=== PATIENT | male | born 1995 | race Caucasian/White ===

== ENCOUNTER 2021-05-24 15:33 | Emergency (ER) | payer BC, OTHER ==
[~2021-05-24] VITALS: Ht 175.3 cm; Wt 75.0 kg
[2021-05-24] MEDS ORDERED: normal saline 1000ml 1,000 ML IV ONE (16:40)
[2021-05-24 16:56] LABS: BASOPHILS # (AUTO) 0.1 X10'3 (0-0.2); BASOPHILS % (AUTO) 0.5 % (0-1); EOSINOPHILS # (AUTO) 0.1 X10'3 (0-0.9); EOSINOPHILS % (AUTO) 0.3 % (0-6); HEMATOCRIT 44.6 % (42.0-52.0); HEMOGLOBIN 15.2 g/dl (14.0-17.9); LYMPHOCYTES # (AUTO) 2.2 X10'3 (1.1-4.8); LYMPHOCYTES % (AUTO) 12.3 % (21-51); MEAN CORPUSCULAR HEMOGLOBIN 30.7 PG (27.0-31.0); MEAN CORPUSCULAR HGB CONC 34.1 g/dL (33.0-36.5); MEAN CORPUSCULAR VOLUME 90.2 FL (78-98); MEAN PLATELET VOLUME 7.6 FL (7.4-10.4); MONOCYTES # (AUTO) 1.3 X10'3 (0-0.9); MONOCYTES % (AUTO) 7.1 % (2-12); NEUTROPHILS # (AUTO) 14.6 X10'3 (1.8-7.7); NEUTROPHILS % (AUTO) 79.8 % (42-75); PLATELET COUNT 300 X10'3 (140-440); RED BLOOD COUNT 4.94 X10'6 (4.70-6.10); RED CELL DISTRIBUTION WIDTH 12.9 % (11.5-14.5); WHITE BLOOD COUNT 18.3 X10'3 (4.5-11.0)
[2021-05-24 17:06] LABS: CLARITY,URINE CLOUDY (Clear); COLOR,URINE YELLOW (Yellow); GLUCOSE, URINE NEGATIVE (Neg); KETONES,URINE 40 mg/dl (Neg); LEUKOCYTE ESTERASE ,URINE NEGATIVE (Neg); NITRITES, URINE NEGATIVE (Neg); OCCULT BLOOD,URINE TRACE-LYSED (Neg); PH,URINE 6.5 (4.8-8.0); PROTEIN,URINE NEGATIVE (Neg); UA COLLECTION TYPE CLN CATCH MIDSTREAM; UROBILINOGEN,URINE 0.2 E.U/dL (0.2-1.0)
[2021-05-24 17:12] LABS: AMORPHOUS URATES 3+; BACTERIA,URINE FEW /HPF (Neg); HYALINE CASTS 0-3 /LPF (NEGATIVE); MUCUS STRANDS MODERATE /LPF (Neg); RBC,URINE NONE SEEN /HPF (0-2); SQUAMOUS EPITHELIAL CELL,UR NONE SEEN /LPF (FEW); WBC,URINE 0-4 /HPF (0-4)
[2021-05-24 17:14] LABS: ALANINE AMINOTRANSFERASE 22 U/L (12-78); ALBUMIN 4.4 G/DL (3.4-5.0); ALBUMIN/GLOBULIN RATIO 1.5 (1.1-1.5); ALKALINE PHOSPHATASE 30 IU/L (46-116); ANION GAP 14 (8-16); ASPARTATE AMINO TRANSFERASE 20 U/L (10-37); BILIRUBIN,TOTAL 0.5 MG/DL (0.1-1.0); BLOOD UREA NITROGEN 11 MG/DL (7-18); BUN/CREATININE RATIO 12.8 (5.4-32.0); CALCIUM 9.4 MG/DL (8.5-10.1); CHLORIDE 104 MMOL/L (99-107); CREATININE 0.86 MG/DL (0.60-1.10); GLUCOSE 96 MG/DL (70-104); POTASSIUM 3.6 MMOL/L (3.5-5.1); SODIUM 142 MMOL/L (135-145); TOTAL CARBON DIOXIDE 24.3 MMOL/L (24-32); TOTAL PROTEIN 7.4 G/DL (6.4-8.2); eGFR > 90 ML/MIN
[2021-05-24 17:17] LABS: URINE AMPHETAMINE SCREEN NEGATIVE (Neg); URINE BARBITUATE SCREEN NEGATIVE (Neg); URINE BENZODIAZEPINES SCREEN POSITIVE (Neg); URINE CANNABINOID SCREEN POSITIVE (Neg); URINE COCAINE SCREEN NEGATIVE (Neg); URINE METHADONE SCREEN NEGATIVE (Neg); URINE OPIATE SCREEN NEGATIVE (Neg); URINE PHENCYCLIDINE SCREEN NEGATIVE (Neg)
--- NOTE | 2021-05-24 17:20 | NUR ---
PT REFUSED IV STATES HE WILL DRINK H2O. DR MOORE NOTIFIED OK TO LEAVE IV OUT
[2021-05-24 17:22] LABS: ETHANOL < 0.010 GM/DL (0.0-0.010)
--- NOTE | 2021-05-24 17:51 | NUR ---
patient given a pitcher of water.
[2021-05-24] MEDS ORDERED: MELA10TA PO (18:59)
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
--- NOTE | 2021-05-24 19:29 | NUR ---
MEDICALLY CLEARED PACKET FAXED TO @ [id number].
[2021-05-24] MEDS ORDERED: Melatonin 3mg tablet PO PRN (21:38)
--- NOTE | 2021-05-25 04:03 | NUR ---
Patient awoke after sleeping for most of night, requested warm blankets and urinal. Patient used urinal, warm blankets and ice water were provided. Patient denies any other needs at this time.
--- NOTE | 2021-05-25 07:26 | NUR ---
PACKET FAXED TO [facility]
--- NOTE | 2021-05-25 10:30 | NUR ---
PT ALERT IN BED NO DISTRESS NOTED. REFILLED WATER
--- NOTE | 2021-05-25 11:27 | NUR ---
[facility] AT BEDSIDE
--- NOTE | 2021-05-26 02:21 | NUR ---
Patient requested "eye drops"; MD notified and verbal order received to use normal saline rinse. RN rinsed patient's eyes with saline, patient states relief.
--- NOTE | 2021-05-26 06:40 | NUR ---
REPORT RECEIVED, CARE ASSUMED OF PT SLEEPING IN [place] BED [facility] IN NO NOTED DISTRESS.
--- NOTE | 2021-05-26 08:00 | NUR ---
PT REMAINS ASLEEP, NO S/S OF DISTRESS NOTED
--- NOTE | 2021-05-26 14:55 | NUR ---
[facility] CALLED PT HAS BEEN ACCEPTED TO [facility] IN [place]. PT WILL BE GOING ON 05/27 AFTER THEY HAVE DISCHARGES. NURSE TO NURSE REPORT WAS GIVEN TO MIRZA LOYD. WAS INFORMED THAT PT WILL BE PICKED UP FOR TRANSPORT AT [facility]OX 1300 TOMORROW AFTERNOON
--- NOTE | 2021-05-26 17:58 | NUR ---
PT WAS ASLEEP THE MAJORITY OF THE DAY. PT HAS NOW WOKEN UP AND INFORMED THAT FAMILY CALLED AND INQUIRING OF HIS STATUS. PT HAS GIVEN PERMISSION FOR KATHRINE HERNANDEZ TO RECEIVE STATUS INFORMATION AND HIS CONTACT NUMBER
--- NOTE | 2021-05-26 19:42 | NUR ---
One to one with the patient who was very cooperative with moving to bed 21. He stated that he has been sleeping poorly. His replies were at times difficult to follow and guarded. He has a blank stare and he also stated, "Typically I don't have any emotions" He stated that he has been noticing strange coincidences. He does not know the history of his biological parents. When asked about psychotic symptoms he stated, "I saw the future and then the future played out"
--- NOTE | 2021-05-26 20:54 | NUR ---
The patient appears to be sleeping
[2021-05-26] MEDS ORDERED: PEG 400/HYPROMELLOSE/GLYCERIN 15ml bottle EACHEYE PRN (21:20)
--- NOTE | 2021-05-26 21:25 | NUR ---
THe patient complaining of dry eyes and Dr. Medrano made aware and orders received.
--- NOTE | 2021-05-26 22:37 | NUR ---
The patient appears to be sleeping
--- NOTE | 2021-05-27 00:01 | NUR ---
The patient appears to be sleeping
--- NOTE | 2021-05-27 02:44 | NUR ---
The patient is up to use the bathroom
[2021-05-27 05:50] VITALS: BP 96/65
--- NOTE | 2021-05-27 05:58 | NUR ---
The patient appears to be sleeping. He has periodically been up to use the bathroom.
--- NOTE | 2021-05-27 08:30 | NUR ---
Patient ate breakfast, states he doesnt feel "as confused" today
--- NOTE | 2021-05-27 09:45 | NUR ---
Patient doing stretches in the bed
== END 2021-05-27 13:05 ==
LOC: ER 15:34
DX: R45.851 Suicidal ideations (principal); Z20.822 Contact with and (suspected) exposure to COVID-19; Z87.442 Personal history of urinary calculi; Z91.018 Allergy to other foods; Z79.899 Other long term (current) drug therapy
CPT/HCPCS: 36415; 80053; 80305; 80320; 81001; 84443; 85025; 87635; 99285; C9803

== ENCOUNTER 2022-05-07 23:06 | Emergency (ER) | payer BC ==
[~2022-05-07] VITALS: Ht 175.3 cm; Wt 77.7 kg
[~2022-05-07 23:06] MED LIST: MELA10TA PO
[2022-05-07 23:45] LABS: BASOPHILS # (AUTO) 0.2 X10'3 (0-0.2); BASOPHILS % (AUTO) 0.6 % (0-1); EOSINOPHILS # (AUTO) 0.1 X10'3 (0-0.9); EOSINOPHILS % (AUTO) 0.2 % (0-6); HEMATOCRIT 48.4 % (42.0-52.0); HEMOGLOBIN 16.4 g/dl (14.0-17.9); LYMPHOCYTES # (AUTO) 1.4 X10'3 (1.1-4.8); LYMPHOCYTES % (AUTO) 4.1 % (21-51); MEAN CORPUSCULAR HEMOGLOBIN 30.6 PG (27.0-31.0); MEAN CORPUSCULAR VOLUME 89.9 FL (78-98); MEAN PLATELET VOLUME 7.6 FL (7.4-10.4); MONOCYTES # (AUTO) 1.4 X10'3 (0-0.9); MONOCYTES % (AUTO) 4.3 % (2-12); NEUTROPHILS # (AUTO) 30.2 X10'3 (1.8-7.7); NEUTROPHILS % (AUTO) 90.8 % (42-75); PLATELET COUNT 337 X10'3 (140-440); RED BLOOD COUNT 5.38 X10'6 (4.70-6.10); RED CELL DISTRIBUTION WIDTH 13.3 % (11.5-14.5)
[2022-05-07 23:49] LABS: WHITE BLOOD COUNT 33.3 X10'3 (4.5-11.0)
[2022-05-07 23:57] LABS: ALANINE AMINOTRANSFERASE 19 U/L (12-78); ALBUMIN 4.6 G/DL (3.4-5.0); ALBUMIN/GLOBULIN RATIO 1.3 (1.1-1.5); ALKALINE PHOSPHATASE 41 IU/L (46-116); ANION GAP 13 (8-16); ASPARTATE AMINO TRANSFERASE 15 U/L (10-37); BLOOD UREA NITROGEN 10 MG/DL (7-18); BUN/CREATININE RATIO 8.6 (5.4-32.0); CALCIUM 9.9 MG/DL (8.5-10.1); CHLORIDE 101 MMOL/L (99-107); CREATININE 1.16 MG/DL (0.60-1.10); GLUCOSE 135 MG/DL (70-104); POTASSIUM 4.3 MMOL/L (3.5-5.1); SODIUM 139 MMOL/L (135-145); TOTAL CARBON DIOXIDE 25.2 MMOL/L (24-32); TOTAL PROTEIN 8.2 G/DL (6.4-8.2); eGFR 75 ML/MIN
[2022-05-08 00:06] LABS: ETHANOL < 0.010 GM/DL (0.0-0.010)
[2022-05-08 00:14] LABS: PLATELET ESTIMATE NORMAL; TOTAL CELLS COUNTED 100
[2022-05-08 00:38] LABS: URINE AMPHETAMINE SCREEN POSITIVE (Neg); URINE BARBITUATE SCREEN NEGATIVE (Neg); URINE BENZODIAZEPINES SCREEN NEGATIVE (Neg); URINE CANNABINOID SCREEN POSITIVE (Neg); URINE COCAINE SCREEN NEGATIVE (Neg); URINE METHADONE SCREEN NEGATIVE (Neg); URINE OPIATE SCREEN NEGATIVE (Neg); URINE PHENCYCLIDINE SCREEN NEGATIVE (Neg)
[2022-05-08] MEDS ORDERED: CefTRIAXone 2gm/D5W 50ml BAG 50 ML IV ONE (02:30)
[2022-05-08] MEDS ORDERED: normal saline 1000ml 1,000 ML IV ONE ×2 (02:30)
[2022-05-08 04:44] LABS: EOSINOPHILS % (AUTO) 0.2 % (0-6); LYMPHOCYTES # (AUTO) 1.8 X10'3 (1.1-4.8); LYMPHOCYTES % (AUTO) 6.2 % (21-51)
[2022-05-08 04:45] LABS: BASOPHILS # (AUTO) 0.1 X10'3 (0-0.2); BASOPHILS % (AUTO) 0.3 % (0-1); MEAN CORPUSCULAR HEMOGLOBIN 30.7 PG (27.0-31.0); MEAN CORPUSCULAR HGB CONC 34.2 g/dL (33.0-36.5); MEAN CORPUSCULAR VOLUME 89.8 FL (78-98); MEAN PLATELET VOLUME 7.9 FL (7.4-10.4); MONOCYTES # (AUTO) 1.6 X10'3 (0-0.9); MONOCYTES % (AUTO) 5.6 % (2-12); NEUTROPHILS # (AUTO) 24.9 X10'3 (1.8-7.7); NEUTROPHILS % (AUTO) 87.7 % (42-75); PLATELET COUNT 232 X10'3 (140-440); RED BLOOD COUNT 4.56 X10'6 (4.70-6.10)
[2022-05-08 04:49] LABS: WHITE BLOOD COUNT 28.4 X10'3 (4.5-11.0)
--- NOTE | 2022-05-08 05:06 | NUR ---
PACKET SENT TO [facility]
--- NOTE | 2022-05-08 06:35 | NUR ---
Pt ambulated from ER bed 7 to ER overflow bed 23 with EMT, José Antonio arcos.
--- NOTE | 2022-05-08 06:48 | NUR ---
The patient to bed 23. He was very cooperative with the move. He is fearful that his life is in danger. He has been getting messages from his computer.
--- NOTE | 2022-05-08 06:52 | NUR ---
Patient's , Latoya [phone]
--- NOTE | 2022-05-08 08:30 | NUR ---
The patient is resting on his bed
[2022-05-08] MEDS ORDERED: olanzapine 10mg tablet PO ONE (09:40)
--- NOTE | 2022-05-08 09:49 | NUR ---
The patient is very fearful about his paranoid and delusional thoughts. He wants his called to bring his phone to prove that the "bots" are real. He stated that if he left here he would "jump off something" Dr. Paredes made aware and orders received. [facility] seam steamer made aware and is seeing him at this time.
[2022-05-08] MEDS ORDERED: LORazepam 1 MG tablet PO ONE (10:30)
--- NOTE | 2022-05-08 10:35 | NUR ---
The patient continues to be very fearful. MD made aware and ativan 2mg ordered.
--- NOTE | 2022-05-08 13:36 | NUR ---
The patient is resting on his bed and the is visiting with him
--- NOTE | 2022-05-08 14:16 | NUR ---
T-97.8 and labs redrawn. Report to Randy at [facility]
[2022-05-08 14:29] LABS: BASOPHILS # (AUTO) 0.1 X10'3 (0-0.2); BASOPHILS % (AUTO) 0.5 % (0-1); EOSINOPHILS # (AUTO) 0.6 X10'3 (0-0.9); EOSINOPHILS % (AUTO) 3.5 % (0-6); HEMATOCRIT 43.4 % (42.0-52.0); HEMOGLOBIN 14.7 g/dl (14.0-17.9); LYMPHOCYTES # (AUTO) 4.2 X10'3 (1.1-4.8); LYMPHOCYTES % (AUTO) 24.2 % (21-51); MEAN CORPUSCULAR HEMOGLOBIN 30.7 PG (27.0-31.0); MEAN CORPUSCULAR HGB CONC 33.9 g/dL (33.0-36.5); MEAN CORPUSCULAR VOLUME 90.6 FL (78-98); MONOCYTES # (AUTO) 1.4 X10'3 (0-0.9); MONOCYTES % (AUTO) 8.1 % (2-12); NEUTROPHILS % (AUTO) 63.7 % (42-75); PLATELET COUNT 287 X10'3 (140-440); RED BLOOD COUNT 4.79 X10'6 (4.70-6.10); RED CELL DISTRIBUTION WIDTH 13.3 % (11.5-14.5); WHITE BLOOD COUNT 17.2 X10'3 (4.5-11.0)
--- NOTE | 2022-05-08 15:23 | NUR ---
The patient is resting on his bed
--- NOTE | 2022-05-08 16:18 | NUR ---
The patient appears to be sleeping
--- NOTE | 2022-05-08 17:12 | NUR ---
The patient is sleeping. His is at the bedside
--- NOTE | 2022-05-08 19:30 | NUR ---
Patient is sleeping quietly. His sits at bedside. No distress.
[2022-05-08] MEDS: olanzapine 10mg tablet PO SCH (19:40)
--- NOTE | 2022-05-08 19:50 | NUR ---
Patients is going home. Patient is cooperative with mild anxiety. In direct view from nursing station.
--- NOTE | 2022-05-08 22:18 | NUR ---
Patient is sleeping quietly on his left side.
--- NOTE | 2022-05-09 02:01 | NUR ---
Patient is sleeping on his right side, no distress.
--- NOTE | 2022-05-09 03:21 | NUR ---
Patient sleeping quietly, no distress.
--- NOTE | 2022-05-09 04:36 | NUR ---
Patient awoke, to bathroom and then back to bed.
--- NOTE | 2022-05-09 05:50 | NUR ---
Vital signs taken. The patient is cooperative and returns to sleep.
--- NOTE | 2022-05-09 07:06 | NUR ---
Patient is sleeping in a supine position.
[2022-05-09] MEDS: olanzapine 10mg tablet PO SCH ×2 (07:25→23:06)
--- NOTE | 2022-05-09 08:59 | NUR ---
Patient is sleeping quietly.
--- NOTE | 2022-05-09 09:51 | NUR ---
This patient talks in his sleep. He is supine, no distress is evident.
--- NOTE | 2022-05-09 10:34 | NUR ---
Patients is here. She is visiting patient. She sits at bedside in a chair. Patients brought in patients cell phone for his future use. It is turned off and will be logged in to patients belongings by the [employer].
--- NOTE | 2022-05-09 10:38 | NUR ---
pt brought in pt phone and requested it be placed w/ pt belongings. tech placed phone w/ other belongings in rm 27 in the appropriate locker.
--- NOTE | 2022-05-09 11:21 | NUR ---
Patient was just evaluated by [facility]. He will be put on a 5150 for GD.
--- NOTE | 2022-05-09 12:01 | NUR ---
Patient is awake, he talks quiety with his at bedside. He is calm and cooperative. A urine was collected and sent for urinalysis.
[2022-05-09 12:34] LABS: CLARITY,URINE CLEAR (Clear); COLOR,URINE YELLOW (Yellow); GLUCOSE, URINE NEGATIVE (Neg); KETONES,URINE NEGATIVE (Neg); LEUKOCYTE ESTERASE ,URINE NEGATIVE (Neg); NITRITES, URINE NEGATIVE (Neg); OCCULT BLOOD,URINE NEGATIVE (Neg); PH,URINE 5.5 (4.8-8.0); PROTEIN,URINE NEGATIVE (Neg); UROBILINOGEN,URINE 0.2 E.U/dL (0.2-1.0)
[2022-05-09 12:37] LABS: UA COLLECTION TYPE CLN CATCH MIDSTREAM
--- NOTE | 2022-05-09 13:44 | NUR ---
Patient is sleeping. His is sitting at bedside.
[2022-05-09] MEDS ORDERED: LORazepam 1 MG tablet PO ONE (15:40)
--- NOTE | 2022-05-09 15:55 | NUR ---
Patient exhibits paranoia once more, anxiety is present too. He is cooperative. Ativan 1mg given PO. Patient is medication compliant.
--- NOTE | 2022-05-09 18:47 | NUR ---
PT SITTING UP IN BED EATING DINNER.
--- NOTE | 2022-05-10 01:31 | NUR ---
PT IN BED ASLEEP.
[2022-05-10] MEDS: olanzapine 10mg tablet PO SCH ×2 (08:28→19:51)
--- NOTE | 2022-05-10 10:03 | NUR ---
PT TALKING TO HIS ON THE PHONE.
[2022-05-10 18:08] VITALS: BP 114/80
--- NOTE | 2022-05-10 18:53 | NUR ---
One to one with the patient who reports he feels much better than when he came in. He stated that he feels less paranoid and that his anxiety was very low. When asked how his mood was he stated that he felt "I'm emotionally vulnerable but also clear headed" He is aware that placlement is being sought for him.
--- NOTE | 2022-05-10 19:58 | NUR ---
The patient is resting on his bed
--- NOTE | 2022-05-10 20:53 | NUR ---
The patient up to the nursing station and requesting medication for sleep. Discussed with Dr. Paredes and orders received
[2022-05-10] MEDS ORDERED: traZODone 50mg tablet PO ONE (20:55)
--- NOTE | 2022-05-10 21:59 | NUR ---
The patient appears to be sleeping
[2022-05-10] MEDS ORDERED: hydrOXYzine 25 MG tablet PO ONE (22:25)
--- NOTE | 2022-05-10 22:31 | NUR ---
The patient is reporting he cannot sleep and Dr. Jackson made aware and order received.
--- NOTE | 2022-05-10 22:48 | NUR ---
patient eloped from the unit out the exit door by bed 26. Security notified
--- NOTE | 2022-05-10 22:55 | NUR ---
[employer] notified that the patient eloped. toll ticket clerk also made aware.
--- NOTE | 2022-05-10 23:12 | NUR ---
Dr. Jackson made aware that the patient eloped. Attempted to notify the patient's but no answer at the contact phone number
== END 2022-05-11 00:37 | disposition left against medical advice (07) ==
LOC: ER 23:06
DX: F31.9 Bipolar disorder, unspecified (principal); R45.851 Suicidal ideations; F12.90 Cannabis use, unspecified, uncomplicated
CPT/HCPCS: 36415; 71045; 80053; 80305; 80320; 81003; 83605; 84145; 84443; 85007; 85025; 86140; 87040; 96365; 99285; J0696; J7030